=== PATIENT | male | born 1945 | race Caucasian/White ===

== ENCOUNTER 2018-01-18 06:51 | Day surgery (SDC) ==
[2013-08-20 13:23] VITALS: BMI 25.7
[2018-01-18] MEDS ORDERED: VERSED ONE (08:45)
[2018-01-18] MEDS ORDERED: ZOFRAN 4 MG/2 ML ONE (08:45)
[2018-01-18] MEDS ORDERED: DIPRIVAN 20 ML VIAL IVP ONE (08:45)
[2018-01-18 09:55] VITALS: BP 138/78; TEMP 98.6
--- NOTE | 2018-01-19 09:47 | OP ---
PROCEDURE: COLONOSCOPY TO THE CECUM. ENDOSCOPIST: Eulogio GUZMAN M.D. INDICATION: HISTORY OF POLYPS. INSTRUMENT: [employer] Platform-190. MEDICATION: PER ANESTHESIA. PROCEDURE: The patient was positioned for colonoscopy. The digital rectal exam was negative. The colonoscope was inserted through the anus and advanced to the cecum. The cecum was identified using the ileocecal valve and the appendiceal orifice as landmarks. The scope was slowly withdrawn through an adequately prepped colon. [place] Bowel Preparation Score of 9. Exam was normal with exception of a few diverticula. Retroflex exam was otherwise normal. The patient tolerated the procedure without immediate complication. Withdrawal time 11 minutes and 50 seconds. PLAN: 1. Suggest repeat colonoscopy in 10 years. SANDRA
== END 2018-01-18 09:53 | disposition home or self-care (01) ==
LOC: SURG 06:51
PROVIDERS: ATTEND Internal Medicine Gastroenterology
DX: Z09 Encounter for follow-up examination after completed treatment for conditions other than malignant neoplasm (principal); Z86.010 Personal history of colon polyps; K57.30 Diverticulosis of large intestine without perforation or abscess without bleeding